=== PATIENT | female | born 1955 | race Two or more races ===

== ENCOUNTER 2018-05-04 12:31 | Inpatient (IN) | payer MEDICAID, OTHER ==
[~2018-05-04] VITALS: Ht 162.6 cm; Wt 94.3 kg
--- NOTE | 2018-05-04 13:00 | NUR ---
ED Nurse Note: PT WALKED IN TO ER TODAY FROM HOME. AOX4. PT C/O INTERMITTENT LEFT SIDED BACK PAIN RADIATING TO RIGHT SHOULDER X 3 DAYS AGO. PT DENIES ANY PAIN AT THIS TIME. PT STATES SHE DID HAVE AN EPISODE OF DIZZINESS X 4 DAYS AGO BUT STATES THAT HAS GONE AWAY SINCE THEN. PT WAS SEEN AT URGENT CARE TODAY BUT WAS SENT TO ER TODAY BECAUSE URGENT CARE WAS UNABLE TO RUN BLOOD WORK. PT HAS STEADY GAIT AND DENIES DIZZINESS AT THIS TIME. PT DENIES NAUSEA OR VOMITING. BP AT BEDSIDE: 156/72.
[2018-05-04 13:02] VITALS: BP 156/72
--- NOTE | 2018-05-04 13:20 | NUR ---
ED Nurse Note: ALL BLOOD SPECIMENS AND URINE SENT DOWN TO THE LAB.
[2018-05-04 14:00] LABS: ANION GAP 6 mmol/L (5-15); BLOOD UREA NITROGEN 12 mg/dL (7-18); CALCIUM 9.2 MG/DL (8.5-10.1); CARBON DIOXIDE 27 MMOL/L (21-32); CHLORIDE 107 MMOL/L (98-107); CREATININE 0.9 MG/DL (0.55-1.30); POTASSIUM 4.1 MMOL/L (3.5-5.1); SODIUM 140 MMOL/L (136-145)
[2018-05-04 14:05] LABS: ALANINE AMINOTRANSFERASE 20 U/L (12-78); ALBUMIN 3.8 G/DL (3.4-5.0); ALBUMIN/GLOBULIN RATIO 1.3 (1.0-2.7); ALKALINE PHOSPHATASE 50 U/L (46-116); ASPARTATE AMINO TRANSFERASE 18 U/L (15-37); BILIRUBIN,TOTAL 0.7 MG/DL (0.2-1.0)
--- NOTE | 2018-05-04 14:12 | Emergency Room Report ---
History of Present Illness General Chief Complaint: Dizziness Source: Patient Present Illness HPI 63-year-old female with history of hypertension, high cholesterol, thyroid disease, presents with intermittent symptoms of chest discomfort, right shoulder pain, palpitations, and sense of impending doom intermittently for the past 4 days. She is concerned because her in the middle of the night from a massive heart attack almost 2 years ago exactly. She is not having current symptoms, and was sent here by an urgent care for further evaluation. Her last episode of chest discomfort was this morning while she was driving. She cannot think of any triggers, or alleviating/exacerbating factors. Patient also reports that she felt a room-spinning dizziness the other day also. Allergies: Coded Allergies: No Known Allergies (Unverified , 05/04/18) Patient History Past Medical History: see triage record Now: No Reviewed Nursing Documentation: PMH: Agreed; PSxH: Agreed Nursing Documentation-PMH Past Medical History: No History, Except For Hx Hypertension: Yes - Hyperthyroidism History Of Psychiatric Problem: Yes - Depression Review of Systems All Other Systems: negative except mentioned in HPI Physical Exam Vital Signs Date Time Temp Pulse Resp B/P (MAP) Pulse Ox O2 Delivery O2 Flow Rate FiO2 05/04/18 12:40 98.2 97 18 133/83 96 Room Air Sp02 EP Interpretation: reviewed, normal General Appearance: no apparent distress, alert, non-toxic Head: normocephalic Eyes: bilateral eye normal inspection, bilateral eye PERRL, bilateral eye EOMI ENT: normal ENT inspection, hearing grossly normal, normal pharynx, no angioedema, normal voice, moist mucus membranes Neck: normal inspection, full range of motion, supple, supple/symm/no masses Respiratory: chest non-tender, lungs clear, normal breath sounds, chest symmetrical, palpation of chest normal Cardiovascular #1: normal peripheral pulses, regular rate, rhythm Cardiovascular #2: 2+ radial (R), 2+ radial (L), 2+ dorsalis pedis (R), 2+ dorsalis pedis (L) Gastrointestinal: normal inspection, non tender, soft, no mass, no guarding, no rebound Rectal: deferred Genitourinary: normal inspection, no CVA tenderness Musculoskeletal: back normal, gait/station normal, normal range of motion, non- tender, no calf tenderness, Jai's Sign negative Neurologic: alert, responsive, secret service agent III-XII nml as tested, motor strength/tone normal, sensory intact, speech normal Psychiatric: judgement/insight normal, memory normal, mood/affect normal, anxious Skin: normal color, no rash, warm/dry, normal turgor Lymphatic: no adenopathy Medical Decision Making Diagnostic Impression: Primary Impression: Chest pain Additional Impression: Dizziness ER Course Patient having intermittent dizziness, as well as intermittent chest pain and palpitations, thus far workup is unremarkable, the patient has a BMI of 35, hypertension, high cholesterol, and Symptomatology, has never had a stress test, will admit to monitor further and consider stress testing as symptoms keep recurring without obvious etiology. EKG Diagnostic Results EKG Time: 13:19 EP Interpretation: no stemi Rate: normal Rhythm: NSR ST Segments: no acute changes ASA given to the pt in ED: Yes Rhythm Strip Diag. Results Rhythm Strip Time: 14:11 EP Interpretation: yes Rate: 78 Rhythm: NSR, no PVC's, no ectopy Chest X-Ray Diagnostic Results Chest X-Ray Diagnostic Results : Chest X-Ray Ordered: Yes # of Views/Limited/Complete: 1 View Indication: Chest Pain EP Interpretation: Yes Interpretation: no consolidation, no effusion, no pneumothorax, no acute cardiopulmonary disease Impression: No acute disease Electronically Signed by: Faye Nelson MD CT/MRI/US Diagnostic Results CT/MRI/US Diagnostic Results : Imaging Test Ordered: ct head Impression pending Last Vital Signs Date Time Temp Pulse Resp B/P (MAP) Pulse Ox O2 Delivery O2 Flow Rate FiO2 05/04/18 13:02 98.4 92 13 156/72 99 Room Air Disposition: ADMITTED INPATIENT FAYE NELSON M.D May 04, 2018 14:12
--- NOTE | 2018-05-04 14:25 | NUR ---
ED Nurse Note: PT TO CT VIA [facility].
--- NOTE | 2018-05-04 14:43 | NUR ---
ED Nurse Note: PT BACK FROM CT VIA [facility].
[2018-05-04 14:44] LABS: BASOPHILS % (AUTO) 0.8 % (0.0-2.0); EOSINOPHILS % (AUTO) 2.3 % (0.0-3.0); HEMATOCRIT 41.7 % (37.0-47.0); HEMOGLOBIN 13.5 G/DL (12.0-16.0); LYMPHOCYTES % (AUTO) 38.7 % (20.0-45.0); MEAN CORPUSCULAR VOLUME 92 FL (80-99); MONOCYTES % (AUTO) 8.9 % (1.0-10.0); NEUTROPHILS % (AUTO) 49.4 % (45.0-75.0); PLATELET COUNT 230 K/UL (150-450); RED BLOOD COUNT 4.55 M/UL (4.20-5.40); RED CELL DISTRIBUTION WIDTH 12.8 % (11.6-14.8)
[2018-05-04 14:50] VITALS: BP 130/57
[2018-05-04] MEDS ORDERED: ATORVASTATIN CA10 MG ORAL (15:00)
[2018-05-04] MEDS ORDERED: NAPROXEN500 M1 ORAL (15:00)
[2018-05-04] MEDS ORDERED: LISINOPRIL10 MG ORAL (15:00)
[2018-05-04] MEDS ORDERED: SYNTHROID100 MCG ORAL (15:00)
[2018-05-04] MEDS ORDERED: BUPROPION XL150 MG ORAL (15:00)
[2018-05-04] MEDS ORDERED: FLUOXETINE HCL40 MG ORAL (15:00)
--- NOTE | 2018-05-04 16:15 | NUR ---
ED Nurse Note: TELE UNIT CALLED FOR PT TRANSFER. HERNANDEZ GOOD NEEDS ADDITIONAL TIME. WILL CALL BACK IN 10 MINUTES.
[2018-05-04 16:17] VITALS: BP 135/62
--- NOTE | 2018-05-04 16:25 | NUR ---
ED Nurse Note: CALL RETURNED BY HERNANDEZ GOOD AND REPORT GIVEN. PT TAKEN UP TO TELE UNIT VIA [facility] ON SCHOOL ADMISSIONS REPRESENTATIVE AND ALL BELONGINGS ACCOMPANIED BY PRIMARY RN AND EMT.
--- NOTE | 2018-05-04 16:34 | NUR ---
ED Nurse Note: PT BROUGHT BACK TO ROOM IN ER PER ADMITTING PHYSICIAN'S REQUEST. PT PLACED BACK ON MONITOR AND WILL CONTINUE TO BE MONITORED UNTIL DR. KING ARRIVES.
[2018-05-04 16:36] VITALS: BP_SYST 137; BP_SYST 147; BP_SYST 155; BP_DIAS 57; BP_DIAS 67; BP_DIAS 73
--- NOTE | 2018-05-04 16:45 | NUR ---
ED Nurse Note: PER DR. TERESA, DR. KING WILL BE ADMITTING PT. TELE UNIT CALLED AND HERNANDEZ GOOD NOTIFIED THAT PT WILL BE TRANSFERRED UP FOR ADMISSION. PT TAKEN UP TO TELE UNIT VIA GURNEY ON POLICY DIRECTOR WITH ALL BELONGINGS ACCOMPANIED BY PRIMARY RN AND EMT. VSS.
[2018-05-04 17:30] VITALS: BP 125/66
[2018-05-04] MEDS ORDERED: BuPROPion XL 150mg tab ORAL SCH (19:15)
--- NOTE | 2018-05-04 19:30 | NUR ---
NURSE NOTES: Report received from Aron NG. Pt is resting in bed in stable condition. Pt is awake, alert, and oriented x4. Pt is on room air and breathing is even and unlabored. No acute distress noted. IV site is asymptomatic, patent, and intact. Pt denies any pain at this time. Bed is placed in lowest position with brake engaged, side rails up x2. Call light and side table placed within reach. Will continue to monitor.
[2018-05-04 20:00] VITALS: BP 141/73
--- NOTE | 2018-05-04 20:07 | NUR ---
HAND-OFF: Report given to Dominga Kathleen.
--- NOTE | 2018-05-04 20:09 | NUR ---
NURSE NOTES: Pt is requesting Benadryl to help her sleep and also provided another home medication of Amlodipine 5mg QHS. Message left for MD Valentin requesting call back for orders. Awaiting call back for further instructions.
--- NOTE | 2018-05-04 21:45 | NUR ---
NURSE NOTES: 2nd message left for MD Valentin requesting call back regarding Benadryl and amlodipine requests by patient. Awaiting call back for further instructions.
[2018-05-04] MEDS ORDERED: AMLODIPINE BESYL5 MG ORAL (23:06)
[2018-05-04] MEDS ORDERED: Milk of Magnesia 30ml Ud ORAL PRN (23:15)
[2018-05-04] MEDS: Metoprolol 25mg tab ORAL SCH (23:50)
[2018-05-05] VITALS: BP 135/66
--- NOTE | 2018-05-05 03:30 | History and Physical Report ---
DATE OF ADMISSION: 05/04/2018 REASON FOR ADMISSION: Right-sided chest pain with dizziness. HISTORY OF PRESENT ILLNESS: This 63-year-old female has had several days of recurring pressure in her right shoulder, arm, and neck region with some numbness. She has also had some vertigo and dizziness for this period. She is unaware of any precipitating events or symptoms and the discomfort is not exertional particularly. She was seen in the emergency room. Her initial EKG was normal as well as her troponin level. ALLERGIES: None. MEDICATIONS: Reviewed and reconciled. PAST MEDICAL HISTORY: Hypertension, depression, hypothyroidism, hyperlipidemia. FAMILY HISTORY: Notable for high blood pressure and high cholesterol. SOCIAL HISTORY: Negative for smoking, alcohol, or substance abuse. REVIEW OF SYSTEMS: Otherwise unremarkable. PHYSICAL EXAMINATION: VITAL SIGNS: Blood pressure 133/83, pulse 97, respirations 18, and afebrile. GENERAL: Pleasant, well developed, well nourished, moderately obese, in no acute distress. HEENT: Conjunctivae pink. Oropharynx clear. NECK: Supple. Jugular venous pressure normal. No bruits. Carotid upstrokes without delay. LUNGS: Clear. No breast masses. CARDIAC: Regular rhythm and rate. Normal S1, S2 with no murmur, rub, or gallop. ABDOMEN: Soft, nontender. EXTREMITIES: No edema. NEUROLOGIC: Reveals no focal deficits. Strength is symmetric and there is no chest wall tenderness elicited. IMPRESSION: Right-sided chest pain, pressure and numbness as well as episodes of dizziness and vertigo. Considerations include atypical anginal presentation, cerebrovascular insufficiency, or cervical spine derangement. RECOMMENDATIONS: Cardiac monitoring, serial troponins, carotid vertebral duplex scan, imaging of the C-spine, consideration for exercise stress testing or myocardial perfusion scan to follow. We will admit for observation, placed on gardening manager, and give anti-platelet, anti-lipid, and antianginal therapy including beta-vickie at this time. Merrill Valentin M.D. DR: SONIA JOB#: [id number] CC:
--- NOTE | 2018-05-05 07:05 | NUR ---
HAND-OFF: Report given to Aron Box RN. Pt is resting in bed in stable condition. No acute distress noted. Endorsed plan of care.
--- NOTE | 2018-05-05 07:08 | NUR ---
NURSE NOTES: Pt in bed in low position HOB in semi fowlers, call light at bedside, pt has bathroom privileges, Pt makes needs known, pt scheduled for a spine CT with no contrast, Md ordered status of observation, pt Ox4 calm and cooperative, pt denies pain, IV intact and patent/asymptomatic, no s/s of distress or sob noted.
[2018-05-05 07:38] LABS: CHOLESTEROL 163 MG/DL (< 200); HDL CHOLESTEROL 66 MG/DL (40-60); TRIGLYCERIDES 57 MG/DL (30-150)
[2018-05-05 08:00] VITALS: BP 127/61
[2018-05-05] MEDS ORDERED: Aspirin Baby 81mg ORAL SCH (09:00)
[2018-05-05] MEDS ORDERED: Heparin 5000 units/ml inj SUBQ SCH (09:00)
[2018-05-05] MEDS ORDERED: Lisinopril 10mg tab ORAL SCH (09:00)
[2018-05-05] MEDS ORDERED: BuPROPion XL 150mg tab ORAL SCH (09:00)
[2018-05-05] MEDS: Metoprolol 25mg tab ORAL SCH (09:13)
--- NOTE | 2018-05-05 10:20 | Diagnostic Imaging Report ---
EXAM: CT Cervical Spine Without Intravenous Contrast CLINICAL HISTORY: PAIN TECHNIQUE: Axial computed tomography images of the cervical spine without intravenous contrast. Coronal and sagittal images were obtained and reviewed. CTDI is 15.78 mGy and DLP is 310 mGy-cm. One or more of the following dose reduction techniques were used: automated exposure control, adjustment of the mA and/or kV according to patient size, use of iterative reconstruction technique. COMPARISON: No relevant prior studies available. FINDINGS: Vertebrae: Unremarkable. No visible displaced fracture. Cervical body heights are preserved. The atlantodens interval appears unremarkable. Discs/spinal canal/neural foramina: Multilevel degenerative disc space loss, facet and uncovertebral hypertrophy, and endplate marginal osteophytes throughout the cervical spine, with varying degrees of central canal and foraminal stenosis. Soft tissues: Heavy calcification of the ligamentous structures adjacent to the dens. IMPRESSION: 1. No evidence of cervical spine fracture or malalignment. 2. Multilevel degenerative spondylosis throughout the cervical spine, with varying degrees of central canal and foraminal stenosis.
[2018-05-05 12:00] VITALS: BP 137/81
[2018-05-05 16:00] VITALS: BP 120/72
--- NOTE | 2018-05-05 19:06 | NUR ---
HAND-OFF: Report given to Dominga Kathleen.
--- NOTE | 2018-05-05 19:15 | NUR ---
NURSE NOTES: Report received from Aron NG. Pt is resting in bed in stable condition. Pt is awake, alert, and oriented x4. Pt is on room air and breathing is even and unlabored. No acute distress noted. IV site is asymptomatic, patent, and intact. Bed is in lowest position with brake engaged and side rails up x2. Call light and side table placed within reach. Pt is requesting to go home if medically cleared by MD. Will attempt to contact MD Valentin and continue to monitor patient. Will continue with plan of care.
--- NOTE | 2018-05-05 19:20 | NUR ---
NURSE NOTES: Message left for MD Valentin stating that pt is requesting to be discharged home if medically cleared per MD. Awaiting call back for further instructions.
[2018-05-05] MEDS ORDERED: ASPIRIN81 MG ORAL (19:24)
--- NOTE | 2018-05-05 19:25 | NUR ---
NURSE NOTES: MD Valentin return call. Per vashti VILLALTA to discharge patient home. Pt instructions per MD Valentin is to continue home medications and add aspirin 81mg daily to home medication regimen. Pt also to follow up with physician assistant primary care within 7 days and be referred for outpatient stress test. Orders noted and carried out.
--- NOTE | 2018-05-05 19:45 | NUR ---
NURSE NOTES: Pt discharged home per MD Valentin. monitor technician removed. IV site removed. Belongings list checked with patient and day shift RN Aron at bedside. All belongings sent home with patient. Belongings list signed and placed in chart, copy provided to patient. Discharge packet and instructions printed and provided to patient. Pt instructed to follow up with primary care sales representative within 7 days of discharge and f/u for outpatient stress test. Pt verbalized understanding of discharge instructions. Pt in stable condition upon discharge. Pt is awake, alert, and oriented x4. Pt is on room air and breathing is even and unlabored. No acute distress noted. Pt independently ambulatory with steady gait and escorted to private vehicle by this RN.
--- NOTE | 2018-05-06 | Progress Note ---
CARDIOLOGY PROGRESS NOTE DATE: 05/05/2018 SUBJECTIVE: The patient has no complaints. No chest pain or shortness of breath. Troponin is negative. Monitored sinus. DIAGNOSTIC DATA: Cervical spine x-ray reveals spondylolisthesis. Carotid duplex unremarkable. IMPRESSION: 1. Low likelihood for anginal episode. 2. Presenting pain is likely due to cervical disc disease. PLAN: The patient is stable for outpatient followup, which may include a stress test in view of her multiple risk factors for premature coronary artery disease. She will be discharged on her usual medication regimen which should include a low-dose aspirin and a statin drug for LDL goal less than 100. Merrill Valentin M.D. DR: MIGUEL JOB#: [id number] CC:
--- NOTE | 2018-05-08 12:41 | Discharge Summary ---
Discharge Summary Discharge Summary _ Discharge summary DATE OF ADMISSION: 05/04/2018 DATE OF DISCHARGE: 05/05/2018 DISCHARGED BY: REASON FOR ADMISSION: 63 years old female with past medical history of hypertension, hyperlipidemia, hypothyroidism, depression, presented to emergency department after several days of recurrent pressure in her right shoulder and neck region with some numbness. Patient also reported vertigo and dizziness at this time. Upon evaluation in emergency room vital signs were stable. EKG reveals sinus normal sinus rhythm , no acute ischemic changes. Troponin was negative. Chest x-ray revealed no acute cardiopulmonary pathology. Laboratory workup revealed no leukocytosis, stable hemoglobin and hematocrit. Stable electrolytes and renal parameters. Glucose 88. Albumin 3.8. Patient was admitted to telemetry floor for further workup . HOSPITAL COURSE: Patient admitted to telemetry floor. Cervical CT of C-spine revealed no evidence of cervical spine fracture or misalignment. Multilevel degenerative spondylosis throughout the cervical spine with varying degrees of central canal and foraminal stenosis noted. Carotid duplex was unremarkable. Serial troponin were negative. EKG revealed no acute ischemic changes. Patient was ruled out for acute myocardial infarction. Lipid panel was stable. Statin was continued. Platelet therapy with aspirin resumed. TSH was within normal limits. Levothyroxine was continued. Beta blockage continued. Blood pressure was managed with beta-vickie and ZULY inhibitor and remained stable. DVT prophylaxis provided. Pain management was addressed as needed. Bowel regimen instituted. Supportive care provided. Per head trimmer , patient had low likelihood for anginal episode. Patient was stable for outpatient follow-up , which may include stress testing due to multiply risk factors for premature coronary artery disease. Patient clinically stabilized. No chest pain , no shortness of breath . Patient was ready for discharge home with her usual medication regimen , which included low-dose aspirin , statin, along with antihypertensive medication regimen . Due to rapid and unexpected improvement in patient condition, patient was discharged in 1 day. FINAL DIAGNOSES: Cervical disc disease Low likelihood for anginal episode. DISCHARGE MEDICATIONS: See Medication Reconciliation list. DISCHARGE INSTRUCTIONS: Patient was discharged home . Follow up with primary care provider in one week. I have been assigned to dictate discharge summary for this account. I was not involved in the patient's management. Krystal Oconnor NP May 08, 2018 12:41
== END 2018-05-05 19:45 | disposition home or self-care (01) | DRG 347 ==
LOC: EMR 13:55 → EDBEDREQ 14:14 → 2E 15:50 → EDBEDREQ 16:08 → 2E 23:21
DX: M47.892 Other spondylosis, cervical region (principal); M48.02 Spinal stenosis, cervical region; I10 Essential (primary) hypertension; E78.5 Hyperlipidemia, unspecified; E03.9 Hypothyroidism, unspecified; F32.9 Major depressive disorder, single episode, unspecified; I20.9 Angina pectoris, unspecified; Z79.82 Long term (current) use of aspirin
CPT/HCPCS: 36415; 70450; 71045; 72125; 80053; 80061; 84443; 84484; 85025; 93005; 93880; 99285